=== PATIENT | female | born 1985 | race American Indian/Alaskan Native ===

== ENCOUNTER 2019-05-09 22:30 | Inpatient (IN) | payer OTHER ==
[2019-05-09] MEDS ORDERED: KETOROLAC 30 MG/1 ML INJ ONE (22:47)
[2019-05-09] MEDS ORDERED: OXYTOCIN 20 UNIT/1000ML DRIP 20 UNITS/1,000 ML BAG IV SCH (23:00)
[2019-05-09] MEDS ORDERED: LACTATED RINGERS 1,000 ML IV SCH (23:00)
[2019-05-09] MEDS ORDERED: LIDOCAINE (2%) 20 MG/1 ML VIAL 20 ML MDV INFILTRATI ONE (23:02)
[2019-05-09 23:05] LABS: Hematocrit 31.1 % (30.3-42.9); Hemoglobin 10.5 gm/dl (10.1-14.3); Mean Corpuscular HGB Conc 34 % (30-34); Mean Corpuscular Volume 93 fl (79-97); Platelet Count 307 K/mm3 (140-440); Red Blood Count 3.34 M/mm3 (3.65-5.03); Red Cell Distribution Width 16.4 % (13.2-15.2)
--- NOTE | 2019-05-09 23:08 | History and Physical Report ---
History of Present Illness Date of examination: 05/09/19 Date of admission: 05/09/19 22:30 Chief complaint: Labor History of present illness: Patient presented from ED active labor. She was completely dilated. States she received PNC at [facility] and was suppose to be induced today at [facility], [place]. No records available Past History Past Medical History: other (sickle beta thalassemia) Past Surgical History: cholecystectomy - Obstetrical History Expected Date of Delivery: 05/30/19 Actual Gestation: 37 Week(s) 0 Day(s) : 4 Hx # Term Pregnancies: 4 Medications and Allergies Allergies Allergy/AdvReac Type Severity Reaction Status Date / Time No Known Allergies Allergy Verified 05/09/19 22:46 Active Meds: Active Medications Oxytocin/Sodium Chloride (Pitocin/Ns 20 Unit/1000ml Drip) 20 units in 1,000 mls @ 125 mls/hr IV DIRECT TARUN Lactated Ringer's (Lactated Ringers) 1,000 mls @ 125 mls/hr IV DIRECT TARUN Lidocaine (Xylocaine 2%) 20 ml INFILTRATI ONCE ONE Stop: 05/09/19 23:03 - Vital Signs Vital signs: Vital Signs Pulse Pulse Ox 73 100 05/09/19 22:33 05/09/19 22:33 Temp Pulse Resp BP Pulse Ox 88 18 120/57 100 05/09/19 22:58 05/09/19 22:49 05/09/19 22:36 05/09/19 22:58 - Physical Exam Breasts: Positive: deferred - Obstetrical Cervical Dilatation: 10 Cervical Effacement Percentage: 100 station: +3 Results All other labs normal. 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
--- NOTE | 2019-05-09 23:12 | Procedure Note ---
OB Delivery Note - Delivery Date of Delivery: 05/09/19 Surgeon: MYA CARNEY Estimated blood loss: 300cc - Vaginal Delivery presentation: vertex Delivery position: OA Delivery induction: none Delivery monitor: external FHT, external uterine Route of delivery: Delivery placenta: spontaneous (intact) Episiotomy: none Delivery laceration: 2nd degree Delivery repair: vicryl (3-0 Vicryl usual fashion) Anesthesia: none - A at 1 minute: 8 at 5 minutes: 9 Infant Gender: Female (7lbs 11oz)
[2019-05-09 23:31] LABS: Hepatitis C Virus Antibody Non-Reactive (NonReactive)
[2019-05-10] MEDS ORDERED: ONDANSETRON 8 MG ODT TAB PO PRN (02:03)
[2019-05-10] MEDS ORDERED: OXYTOCIN 20 UNIT/1000ML DRIP 20 UNITS/1,000 ML BAG IV PRN (02:03)
[2019-05-10] MEDS ORDERED: LANOLIN/ZINC/DIMETHICONE (LANSINOH) 7 GM TP PRN (02:03)
[2019-05-10] MEDS ORDERED: ACETAMINOPHEN 325 MG TAB PO PRN (02:03)
[2019-05-10] MEDS ORDERED: BENZOCAINE/MENTHOL 20/0.5% TOP SPRAY 56 GM TP PRN (02:03)
[2019-05-10] MEDS ORDERED: MAGNESIUM HYDROXIDE (MOM) ORAL LIQD UDC PO PRN (02:03)
[2019-05-10] MEDS ORDERED: WITCH HAZEL/ GLYCERIN PAD TP PRN (02:03)
[2019-05-10] MEDS ORDERED: diphenhydrAMINE 25 MG CAP PO PRN (02:03)
[2019-05-10] MEDS ORDERED: KETOROLAC 30 MG/1 ML INJ IV ONE (02:23)
[2019-05-10 04:45] LABS: Amphetamine Screen,Urine PRESUMPTIVE NEGATIVE; Benzodiazepines Screen,Urine PRESUMPTIVE NEGATIVE; Cannabinoid Screen,Urine PRESUMPTIVE NEGATIVE; Cocaine Screen,Urine PRESUMPTIVE NEGATIVE; Methadone Screen,Urine PRESUMPTIVE NEGATIVE; Opiate Screen,Urine PRESUMPTIVE NEGATIVE
[2019-05-10] MEDS ORDERED: TETANUS,DIPH,PERTUSS(ACELL) VACCINE 0.5 ML SYRINGE IM ONE (06:00)
[2019-05-10] MEDS: IBUPROFEN 600 MG TAB PO SCH ×4 (06:09→22:58)
--- NOTE | 2019-05-10 10:21 | Progress Note ---
Assessment and Plan patient resting w/o complaints. Bottle feeding. VSSAF, H&H ordered to be drawn @ 1055 today. Pt states she is GBS POS. communications clerk calling for records. - Patient Problems (1) (normal spontaneous vaginal delivery) Current Visit: Yes Status: Acute Plan to address problem: Continue pathway d/c home tomorrow Subjective - Subjective Date of service: 05/10/19 Principal diagnosis: day #1 s/p Patient reports: appetite normal, voiding normally, pain well controlled, ambulating normally, no dizzy ambulation, no nauseated Woody: doing well, bottle feeding Objective - Vital Signs Latest vital signs: Vital Signs Temp Pulse Resp BP BP Pulse Ox 05/10/19 08:02 97.9 F 97 H 20 110/65 96 05/10/19 04:07 98.2 F 72 20 123/61 99 05/10/19 00:55 98.2 F 80 18 128/77 99 05/09/19 23:53 83 100 05/09/19 23:50 85 128/69 05/09/19 23:48 81 100 05/09/19 23:43 85 100 05/09/19 23:38 85 100 05/09/19 23:36 74 126/64 05/09/19 23:33 77 100 05/09/19 23:28 86 100 05/09/19 23:23 81 100 05/09/19 23:20 82 125/67 05/09/19 23:18 74 100 05/09/19 23:13 77 100 05/09/19 23:08 86 100 05/09/19 23:06 97.9 F 82 22 130/72 05/09/19 23:03 81 99 05/09/19 22:58 88 100 05/09/19 22:53 102 H 97 05/09/19 22:50 105 H 89 05/09/19 22:49 18 05/09/19 22:48 106 H 100 05/09/19 22:43 86 100 05/09/19 22:38 82 100 05/09/19 22:36 93 H 120/57 05/09/19 22:33 73 100 Intake and Output 05/09/19 05/10/19 05/10/19 23:59 07:59 15:59 Intake Total 240 Output Total 800 Balance -560 Intake: Oral 240 Output: Urine 800 Void 800 Other: Total, Intake Amount 240 Total, Output Amount 600 # Voids Void 2 Weight 83.915 kg Estimated Blood Loss 300 - Exam Breasts: Present: normal. Absent: Cardiovascular: Present: Regular rate Lungs: Present: Clear to auscultation, Normal air movement Abdomen: Present: normal appearance, soft Vulva: both: laceration/episiotomy Uterus: Present: normal, firm, fundal height at umbilicus Extremities: Present: normal Deep Tendon Reflex Grade: Normal +2 - Labs Labs: Abnormal lab results 05/09/19 Range/Units 22:30 RBC 3.34 L (3.65-5.03) M/mm3 RDW 16.4 H (13.2-15.2) %
[2019-05-10 10:39] LABS: Hematocrit 26.2 % (30.3-42.9); Hemoglobin 8.6 gm/dl (10.1-14.3)
--- NOTE | 2019-05-11 11:18 | Discharge Summary ---
Providers - Providers Date of Admission: 05/09/19 22:30 Date of discharge: 05/11/19 Attending physician: MYA CARNEY 05/10/19 02:03 Consult to Super[employer] [CONS] Routine Reason For Exam: assistance with , SNS Primary care physician: MYA CARNEY Hospitalization Reason for admission: labor and delivery Condition: Good Pertinent studies: H&H 8.6/26.2, asymptomatic anemia following acute blood loss Procedures: Hospital course: precipitous vaginal and uncomplicated course. Disposition: - TO HOME OR SELFCARE - Discharge Diagnoses (1) (normal spontaneous vaginal delivery) Status: Acute Core Measure Documentation - Palliative Care Palliative Care/ Comfort Measures: Not Applicable - Core Measures Any of the following diagnoses?: none Exam - Constitutional Vitals: Temp Pulse Resp BP Pulse Ox 97.7 F 71 18 100/41 98 05/11/19 08:45 05/11/19 08:45 05/11/19 08:45 05/11/19 08:45 05/11/19 00:01 General appearance: Present: no acute distress, well-nourished - EENT Eyes: Present: PERRL ENT: hearing intact, clear oral mucosa - Neck Neck: Present: supple, normal ROM - Respiratory Respiratory effort: normal Respiratory: bilateral: CTA - Cardiovascular Rhythm: regular Heart Sounds: Absent: rub, click - Extremities Extremities: No edema Peripheral Pulses: within normal limits - Abdominal General gastrointestinal: Present: soft, non-tender, non-distended, normal bowel sounds Female genitourinary: Present: normal - Integumentary Integumentary: Present: clear, warm, dry - Musculoskeletal Musculoskeletal: gait normal, strength equal bilaterally - Psychiatric Psychiatric: appropriate mood/affect, intact judgment & insight - Neurologic Neurologic: CNII-XII intact, moves all extremities - Additional findings Additional findings: lochia scant, fundus firm, bottle feeding, VSSAF Plan Activity: no restrictions Diet: regular Follow up with: MYA CARNEY MD [Primary Care Provider] - 6 Weeks (Congratulations. Please follow up with your OBGYN for your visit. You may also call our office @ [phone] to schedule your visit if you wish. Call for any questions or concerns.)
[2019-05-11] MEDS: IBUPROFEN 600 MG TAB PO SCH (12:10)
[2019-05-11 17:18] VITALS: BP 113/72
== END 2019-05-11 15:25 | disposition home or self-care (01) | DRG 806 ==
LOC: LD 22:30 → OB 05-10 02:01
PROVIDERS: ADMIT Obstetrics & Gynecology; ATTEND Obstetrics & Gynecology
PROC: 10E0XZZ Delivery of Products of Conception, External Approach (ICD-10-PCS; principal; 2019-05-09)
PROC: 0KQM0ZZ Repair Perineum Muscle, Open Approach (ICD-10-PCS; 2019-05-09)
PROC: 3E0234Z Introduction of Serum, Toxoid and Vaccine into Muscle, Percutaneous Approach (ICD-10-PCS; 2019-05-10)
DX: O99.824 Streptococcus B carrier state complicating childbirth (principal); D62 Acute posthemorrhagic anemia; Z37.0 Single live birth; Z90.49 Acquired absence of other specified parts of digestive tract; D57.40 Sickle-cell thalassemia without crisis; O90.81 Anemia of the puerperium; O99.02 Anemia complicating childbirth; O70.1 Second degree perineal laceration during delivery; Z3A.37 37 weeks gestation of pregnancy; Z23 Encounter for immunization
CPT/HCPCS: 36415; 80307; 85014; 85018; 85027; 86592; 86706; 86762; 86803; 86850; 86900; 86901; 87806; G0378; J1885; J2590